=== PATIENT | female | born 1960 | race African-American/Black ===

== ENCOUNTER 2017-06-30 13:06 | Emergency (ER) | payer MEDICAID ==
[2017-06-30 16:12] VITALS: BP 144/83
== END 2017-06-30 16:12 | disposition home or self-care (01) ==
LOC: ED 13:06
DX: M54.2 Cervicalgia (principal)

== ENCOUNTER 2017-08-18 16:48 | Emergency (ER) | payer MEDICAID ==
[2017-08-18 19:14] LABS: CALCIUM 9.2 mg/dL (8.5-10.1); CARBON DIOXIDE 31.8 mmol/L (21-32); CHLORIDE SERUM 105 mmol/L (98-107); CREATININE SERUM 0.9 mg/dL (0.6-1.0); GFR1 > 60 mL/min; GLUCOSE SERUM 99 mg/dL (74-106); SODIUM SERUM 142 mmol/L (136-145)
[2017-08-18 19:20] LABS: BASOPHIL % 0.4 % (0-2); PLATELET COUNT 219 x10^3mcL (130-400); RED CELL DISTRIBUTION WIDTH 13.8 % (11.5-14.5)
[2017-08-18 19:25] LABS: ALBUMIN 3.7 g/dL (3.4-5.0); ALKALINE PHOSPHATASE 68 U/L (46-116); ALT/SGPT 17 U/L (14-59); AST/SGOT 18 U/L (15-37); BILIRUBIN TOTAL 0.27 mg/dL (0.20-1.00); TOTAL PROTEIN, SERUM 8.2 g/dL (6.4-8.2)
[2017-08-18 20:46] VITALS: BP 147/77
== END 2017-08-18 20:48 | disposition home or self-care (01) ==
LOC: ED 16:48
PROVIDERS: Emergency Medicine
DX: B34.9 Viral infection, unspecified (principal)
CPT/HCPCS: 36415; Q0162